=== PATIENT | female | born 1990 | race Caucasian/White ===

== ENCOUNTER 2016-10-11 23:07 | Inpatient (IN) | payer OTHER ==
[2016-10-11 23:43] VITALS: BMI 29.9
[2016-10-11] MEDS ORDERED: PENICILLIN G POTASSIUM 5 MMU in NS 0.9% (MINI-BAG PLUS) 100 ML IV ONE (23:47)
[2016-10-11] MEDS ORDERED: LACTATED RINGERS 1,000 ML IV PRN (23:47)
[2016-10-11] MEDS ORDERED: OXYTOCIN IN LR 500 ML IV ONE (23:47)
[2016-10-12] MEDS ORDERED: IV START KIT ONE (00:03)
[2016-10-12] MEDS ORDERED: LACTATED RINGERS 1,000 ML ONE (00:04)
[2016-10-12] MEDS ORDERED: LIDOCAINE Viscous 2% 15 ML UDCUP ONE (00:04)
[2016-10-12] MEDS ORDERED: OXYTOCIN 10 UNITS/ML VIAL ONE (00:04)
[2016-10-12] MEDS ORDERED: MINERAL OIL 25 ML BOT ONE (00:04)
[2016-10-12] MEDS ORDERED: OXYTOCIN IN LR 500 ML IV ONE (00:04)
[2016-10-12] MEDS ORDERED: PUMP TUBING ONE (00:04)
[2016-10-12] MEDS ORDERED: LIDOCAINE 1% (PRES FREE) 30 ML VIAL ONE (00:04)
[2016-10-12] MEDS ORDERED: NS 0.9% (MINI-BAG PLUS) 100 ML IV ONE (00:05)
[2016-10-12] MEDS ORDERED: PENICILLIN G POTASSIUM 5 MMU VIAL ONE (00:05)
[2016-10-12] MEDS: LACTATED RINGERS 1,000 ML IV SCH ×3 (00:31→14:57)
[2016-10-12] MEDS ORDERED: EPIDURAL PUMP SET ONE (00:37)
[2016-10-12] MEDS ORDERED: FENTANYL/ROPIVACAINE EPIDURAL 250 ML EP ONE (00:38)
[2016-10-12] MEDS ORDERED: EPIDURAL PROCEDURE TRAY ONE (00:41)
[2016-10-12 00:49] LABS: HEMATOCRIT 32.4 % (37.0-47.0); HEMOGLOBIN 9.9 gm/l (12.0-16.0); MEAN CELL VOLUME 74.5 fl (81.0-99.0); MEAN CORPUSCULAR HEMOGLOBIN 22.8 pg (27.0-31.0); MEAN CORPUSCULAR HGB CONC 30.6 g/dl (33.0-37.0); RED CELL DISTRIBUTION WIDTH 15.7 % (11.5-14.5)
[2016-10-12] MEDS ORDERED: EPHEDRINE SULFATE 50 MG/ML 1ML VIAL ONE (01:29)
[2016-10-12] MEDS ORDERED: NALBUPHINE HCL 20 MG/ML AMP IV PRN (01:49)
[2016-10-12] MEDS ORDERED: SODIUM CHLORIDE 0.9% 500 ML IV PRN (01:49)
[2016-10-12] MEDS ORDERED: EPHEDRINE SULFATE 50 MG/ML 1ML VIAL IV PRN (01:49)
[2016-10-12] MEDS ORDERED: DIPHENHYDRAMINE HCL 50 MG/1 ML VIAL IV PRN (01:49)
[2016-10-12] MEDS ORDERED: NALOXONE HCL 0.4 MG/ML VIAL IV PRN (01:49)
[2016-10-12] MEDS ORDERED: METOCLOPRAMIDE HCL 5 MG/ML 2ML VIAL IV PRN (01:49)
[2016-10-12] MEDS ORDERED: ONDANSETRON 4 MG/2ML 2 ML VIAL IV PRN (01:49)
[2016-10-12] MEDS ORDERED: LACTATED RINGERS 500 ML IV PRN (01:49)
[2016-10-12] MEDS ORDERED: FENTANYL/ROPIVACAINE EPIDURAL 250 ML EP SCH (02:00)
[2016-10-12] MEDS ORDERED: MEASLES,MUMPS&RUBELLA VACCINE 0.5 ML VIAL SUB-Q V ONE (03:59)
[2016-10-12] MEDS ORDERED: LANOLIN 50 APPLIC/7G TUBE TP PRN (03:59)
[2016-10-12] MEDS ORDERED: DIPHTH,PERTUSS(ACELL),TET VAC 0.5 ML VIAL IM V ONE (03:59)
[2016-10-12] MEDS ORDERED: HYDROCODONE/ACETAMINOPHEN 5/325MG TABLET PO PRN (03:59)
[2016-10-12] MEDS ORDERED: BENZOCAINE/MENTHOL 60 APPLIC/BOT TP PRN (03:59)
[2016-10-12] MEDS ORDERED: PENICILLIN G 3 MIL UNIT PREMIX 3 MMU in Premix (D5W) 50 ml 1 EACH IV SCH (04:00)
[2016-10-12] MEDS ORDERED: MINERAL OIL 25 ML BOT TP ONE (04:07)
[2016-10-12] MEDS: IBUPROFEN 800 MG TABLET PO PRN ×3 (04:59→23:59)
[2016-10-12] MEDS ORDERED: DOCUSATE SODIUM 100 MG CAPSULE PO SCH (09:00)
--- NOTE | 2016-10-12 10:52 | PDOC44 ---
- Subjective Reports Pain Tolerable, Reports , Reports Lochia Light - Objective Temp Pulse Resp BP Pulse Ox 98.1 F 73 16 124/62 10/12/16 07:25 10/12/16 07:25 10/12/16 07:25 10/12/16 07:25 Lab Results 10/12/16 00:15 WBC 8.7 RBC 4.35 Hgb 9.9 L Hct 32.4 L Plt Count 122 L 10/12/16 00:15 MCV 74.5 L MCH 22.8 L MCHC 30.6 L RDW 15.7 H Current Medications Generic Name Dose Route Start Last Admin Trade Name Freq PRN Reason Stop Dose Admin Acetaminophen/Hydrocodone Bitart 1 - 2 tab 10/12/16 03:59 [place] 5/325 PO Q4H PRN Pain (Moderate) Benzocaine/Menthol 1 applic 10/12/16 03:59 Dermoplast TP PRN PRN Patient Comfort Docusate Sodium 100 mg 10/12/16 09:00 Colace PO DAILY HEMANT Emollient Ointment 1 applic 10/12/16 03:59 [id number] TP PRN PRN sore nipples Ibuprofen 800 mg 10/12/16 03:59 10/12/16 04:59 Motrin PO 800 mg Q6H PRN Administration Pain (Mild) Sodium Chloride 10 ml 10/12/16 03:59 Normal Saline 10ml Flush IV PRN PRN IV Flush - Physical Exam General: Afebrile Psych/Mental Status: Mood/Affect Appropriate Breast: Soft Fundus: Firm Abdomen: Normal Bowel Sounds Genitourinary: Normal Female Genitalia Disposition: Stable, Anticipate DC Home Tomorrow
[2016-10-13 07:10] LABS: HEMOGLOBIN 8.3 gm/l (12.0-16.0)
--- NOTE | 2016-10-13 10:47 | PDOC44 ---
- Subjective Day: 2 Reports Pain Tolerable, Reports , Reports Lochia Light - Objective Temp Pulse Resp BP Pulse Ox 97.9 F 75 18 123/75 10/13/16 08:33 10/13/16 08:33 10/13/16 08:33 10/13/16 08:33 Lab Results 10/13/16 06:15 Hgb 8.3 L Hct 28.0 L Current Medications Generic Name Dose Route Start Last Admin Trade Name Freq PRN Reason Stop Dose Admin Acetaminophen/Hydrocodone Bitart 1 - 2 tab 10/12/16 03:59 10/12/16 17:07 [place] 5/325 PO 1 tab Q4H PRN Administration Pain (Moderate) Benzocaine/Menthol 1 applic 10/12/16 03:59 Dermoplast TP PRN PRN Patient Comfort Docusate Sodium 100 mg 10/12/16 09:00 Colace PO DAILY HEMANT Emollient Ointment 1 applic 10/12/16 03:59 [id number] TP PRN PRN sore nipples Ibuprofen 800 mg 10/12/16 03:59 10/12/16 23:59 Motrin PO 800 mg Q6H PRN Administration Pain (Mild) Sodium Chloride 10 ml 10/12/16 03:59 Normal Saline 10ml Flush IV PRN PRN IV Flush - Physical Exam General: Afebrile Psych/Mental Status: Mood/Affect Appropriate Breast: Soft Fundus: Firm Abdomen: Normal Bowel Sounds Genitourinary: Normal Female Genitalia Disposition: Stable, Anticipate DC to Home
[2016-10-13] MEDS: IBUPROFEN 800 MG TABLET PO PRN (12:36)
[2016-10-13 13:29] VITALS: BP 116/73
--- NOTE | 2016-10-13 15:41 | US ---
LEFT LOWER EXTREMITY VENOUS ULTRASOUND HISTORY: Left calf pain associated with varicose veins. Sonography of the left lower extremity was performed, with a focus on the venous structures. FINDINGS: COMMON FEMORAL VEIN: Patent and compressible. SUPERFICIAL FEMORAL VEIN: Patent and compressible. POPLITEAL VEIN: Patent and compressible. PROXIMAL CALF VEINS: Patent and compressible. RESPIRATORY AUGMENTATION OF FLOW: Present. ABNORMAL FLUID COLLECTIONS: None identified. SUPERFICIAL VEINS: Extensive thrombus distending from the mid thigh to proximal calf within a left lateral varicose vein. IMPRESSION: No sonographic evidence of left lower extremity deep venous thrombosis. Thrombus seen within a left lateral varicose vein, correlate for superficial thrombophlebitis. Findings discussed with Dr. Sorto of the referring clinical service on 10/13/2016 at 1537 hours.
== END 2016-10-13 16:37 | disposition home or self-care (01) | DRG 775 ==
LOC: FBC 23:07 → FBCOUT 23:07 → FBC 23:45
PROVIDERS: ADMIT Obstetrics & Gynecology; ATTEND Obstetrics & Gynecology
PROC: 0HQ9XZZ Repair Perineum Skin, External Approach (ICD-10-PCS; principal; 2016-10-12)
PROC: 10E0XZZ Delivery of Products of Conception, External Approach (ICD-10-PCS; 2016-10-12)
DX: O70.0 First degree perineal laceration during delivery (principal); Z3A.39 39 weeks gestation of pregnancy; Z37.0 Single live birth

== ENCOUNTER 2016-10-16 14:59 | Outpatient (CLI) | payer OTHER | END 2016-10-16 15:00 | disposition home or self-care (01) | LOC: BABIESSH 14:59 | PROVIDERS: ATTEND Obstetrics & Gynecology | DX: Z39.1 Encounter for care and examination of lactating mother (principal) ==

== ENCOUNTER 2016-12-30 04:16 | Emergency (ER) | payer OTHER ==
[2016-12-30] MEDS ORDERED: SODIUM CHLORIDE 0.9% 1,000 ML ONE (05:23)
[2016-12-30] MEDS ORDERED: KETOROLAC TROMETHAMINE 30 MG/ML 1 ML VIAL ONE (05:23)
[2016-12-30] MEDS ORDERED: DIPHENHYDRAMINE HCL 50 MG/1 ML VIAL ONE (05:23)
[2016-12-30] MEDS ORDERED: MECLIZINE HCL 25 MG TABLET ONE (05:24)
[2016-12-30] MEDS ORDERED: DEXAMETHASONE SOD PHOS 10 MG/1 ML VIAL ONE (05:24)
[2016-12-30 05:29] LABS: ABSOLUTE NEUTROPHIL COUNT 7.4 K/mm3 (1.8-7.7); BASO % 0.1 % (0.2-1.0); EOS % 0.1 % (0.9-2.9); HEMOGLOBIN 12.5 gm/l (12.0-16.0); IMM NEUT% 0.2 % (0-1); LYMPH # 0.9 (1.0-4.8); LYMPH % 10.3 % (15-45); MEAN CELL VOLUME 80.2 fl (81.0-99.0); MEAN CORPUSCULAR HEMOGLOBIN 25.1 pg (27.0-31.0); MEAN CORPUSCULAR HGB CONC 31.3 g/dl (33.0-37.0); MEAN PLATELET VOLUME 11.3 fl (7.4-10.4); MONO # 0.5 (0.0-0.8); MONO % 5.6 % (4-12); NEUT % 83.7 % (43-75); PLATELET COUNT 134 K/mm3 (130-400); RED CELL DISTRIBUTION WIDTH 17.8 % (11.5-14.5)
[2016-12-30 05:51] LABS: ALB/GLOB RATIO 1.4 (>1.0); ALBUMIN 3.9 gm/dL (3.5-5.7); MAGNESIUM 1.6 mg/dL (1.9-2.7)
[2016-12-30] MEDS ORDERED: POTASSIUM CHLORIDE 20 MEQ TAB.PRT.SR ONE (06:12)
== END 2016-12-30 07:40 | disposition home or self-care (01) ==
LOC: ED 04:16
DX: H92.01 Otalgia, right ear (principal); R42 Dizziness and giddiness; M54.2 Cervicalgia
CPT/HCPCS: 84703; 85025; 80053; 83735; A9270 ×2; J1200; J1100; J1885; J7030